=== PATIENT | male | born 1970 | race Caucasian/White ===

== ENCOUNTER 2020-02-02 09:09 | Outpatient (CLI) | payer OTHER ==
--- NOTE | 2020-02-02 09:43 | ULT ---
EXAM: US Gallbladder RUQ CLINICAL HISTORY: Acid reflux. Right upper quadrant pain.. COMPARISON: None. FINDINGS: Pancreas: The head of the pancreas has a normal echotexture. Remainder the pancreas is obscured by b owel gas Liver:Hepatic parenchyma has a normal echotexture. No hepatic masses or intrahepatic biliary dilatati on. Right hepatic lobe: 15.2 cm Gallbladder: No sonographic evidence of cholelithiasis, gallbladder wall thickening or pericholecysti c fluid. Echogenic focus with ringdown artifact in the gallbladder fundus compatible with adenomyomatosis. Norris's sign:Negative Portal Vein: Patent. Appropriate directional flow Bile ducts: 0.6 cm common bile duct diameter Right kidney: No hydronephrosis. Right kidney measures 11.0 x 6.6 x 7.1 cm in length. IMPRESSION: Unremarkable exam.
== END 2020-02-02 09:10 | disposition home or self-care (01) ==
LOC: BICULT 09:09
PROVIDERS: ATTEND Nurse Practitioner Family
DX: R10.11 Right upper quadrant pain (principal)
CPT/HCPCS: 76705

== ENCOUNTER 2020-03-04 05:55 | Outpatient (CLI) | payer OTHER ==
[2020-03-04 14:31] LABS: #Eosinphils 0.5 thou/uL (0.0-0.7); #Lymphocytes 2.6 thou/uL (1.20-3.40); #Monocytes 0.7 thou/uL (0.11-0.59); #Neutrophils 3.3 thou/uL (1.40-6.50); %Basophils 0.7 % (0.0-1.0); %Eosinophils 7.4 % (0.0-10.0); %Lymphocytes 35.8 % (21.0-51.0); %Monocytes 10.1 % (0.0-10.0); Mean Corpuscular HGB CONC 33.2 g/dL (32.0-36.0); Mean Corpuscular Hemoglobin 30.1 pg (27.0-31.0); Mean Corpuscular Volume 90.6 fL (78.0-98.0); Mean Platelet Volume 8.2 fL (7.4-10.4); Platelet Count 266 thou/uL (130-400); RBC Distribution Width 11.8 % (11.5-14.5); Red Blood Cell (RBC) Count 4.98 mill/uL (4.70-6.10); White Blood Cell (WBC) Count 7.2 thou/uL (4.8-10.8)
[2020-03-04 14:41] LABS: Anion Gap 13 mmol/L (10-20); BUN (Urea Nitrogen) 10 mg/dL (8.9-20.6); Calc. Creatinine Clearance 0 mL/min (70-130); Calcium 9.8 mg/dL (7.8-10.44); Carbon Dioxide 24 mmol/L (22-29); Chloride 103 mmol/L (98-107); Estimated GFR-MDRD 70; Glucose 99 mg/dL (70-105); Potassium 4.1 mmol/L (3.5-5.1); Sodium 136 mmol/L (136-145)
[2020-03-05 13:46] LABS: SARS-CoV-2 MS2 Positive; SARS-CoV-2 N Gene Negative; SARS-CoV-2 S Gene Negative; SARS-CoV-2 orf1ab Negative
== END 2020-03-04 05:56 | disposition home or self-care (01) ==
LOC: LABBT 05:55
PROVIDERS: ATTEND Surgery
DX: Z01.812 Encounter for preprocedural laboratory examination (principal); Z11.59 Encounter for screening for other viral diseases; K82.8 Other specified diseases of gallbladder
CPT/HCPCS: 80048; 85025; 87635; U0003

== ENCOUNTER 2020-03-07 07:19 | Inpatient (IN) | payer OTHER ==
[2020-03-07] MEDS ORDERED: Lidocaine 1% w/Epinephrine 1:100K 20 ML VIAL ONE (09:08)
[2020-03-07] MEDS ORDERED: Bupivacaine 0.25% HCL 30 ML VIAL ONE (09:08)
[2020-03-07] MEDS ORDERED: Fentanyl 100 MCG/2 ML VIAL ONE ×3 (09:09→11:59)
[2020-03-07] MEDS ORDERED: Iopamidol 15 ML ONE (09:33)
[2020-03-07 09:51] LABS: ALT (SGPT) 512 U/L (8-55); AST (SGOT) 206 U/L (5-34); Albumin 4.4 g/dL (3.5-5.0); Alkaline Phosphatase 374 U/L (40-110); Bilirubin, Direct 3.9 mg/dL (0.1-0.3); Bilirubin, Total 5.2 mg/dL (0.2-1.2); Protein, Total 7.3 g/dL (6.0-8.3)
[2020-03-07] MEDS ORDERED: Dexamethasone 20 MG/5 ML VIAL ONE (11:07)
[2020-03-07] MEDS ORDERED: EPHEDRINE 25 MG/5 ML SYRINGE ONE (11:07)
[2020-03-07] MEDS ORDERED: Rocuronium Bromide 10 MG/ML (10ML VIAL) ONE (11:07)
[2020-03-07] MEDS ORDERED: Lidocaine 1% PF 5 ML VIAL ONE (11:07)
[2020-03-07] MEDS ORDERED: Glycopyrrolate 0.2 MG/ML 5 ML SYRINGE ONE (11:07)
[2020-03-07] MEDS ORDERED: Ondansetron PF 4 MG/2 ML Vial ONE (11:07)
[2020-03-07] MEDS ORDERED: PROPOFOL 200 MG/20 ML VIAL ONE (11:07)
[2020-03-07] MEDS ORDERED: SUGAMMADEX SODIUM 200 MG/2 ML VIAL ONE (11:10)
[2020-03-07] MEDS ORDERED: Promethazine HCl 25 MG/ML VIAL IM PRN ×2 (11:17→12:25)
[2020-03-07] MEDS ORDERED: PACU-Morphine 4MG/ML VIAL SLOW IVP PRN (11:17)
[2020-03-07] MEDS ORDERED: Promethazine HCl 25 MG/ML VIAL SLOW IVP PRN (11:17)
[2020-03-07] MEDS ORDERED: Ondansetron HCl/PF 4 MG/2 ML Vial IVP PRN (11:17)
[2020-03-07] MEDS ORDERED: HYDROmorphone 2 MG/ML VIAL SLOW IVP PRN (11:17)
[2020-03-07] MEDS ORDERED: Morphine Sulfate 2 MG/ML SYRINGE SLOW IVP PRN (11:17)
[2020-03-07] MEDS ORDERED: Meperidine HCl/PF 25 MG/ML VIAL SLOW IVP PRN (11:17)
--- NOTE | 2020-03-07 11:42 | RAD ---
Intraoperative cholangiogram one view: 03/07/2020 HISTORY: 49-year-old male with right upper quadrant abdominal pain FINDINGS: Single image demonstrates contrast injected through cystic duct stump demonstrates diffusely dilated common bile duct and common hepatic duct, and dilated proximal portions of hepatic ducts. There is lack of contrast inferior to the lower common bile duct where there is irregularity. No definite inte rnal filling defect identified. No contrast visualized in the duodenum. IMPRESSION: Extrahepatic biliary ductal ectasia suspicious for obstruction at lower portion of common bile duct.
[2020-03-07] MEDS ORDERED: Mag-Al 1200 mg/1200 mg/30 ML UDCUP PO PRN (12:25)
[2020-03-07] MEDS ORDERED: Ondansetron PF 4 MG/2 ML Vial IVP PRN (12:25)
[2020-03-07] MEDS ORDERED: Dextrose 50% Abboject 50 ML SYRINGE SLOW IVP PRN (12:25)
[2020-03-07] MEDS ORDERED: Calcium Carbonate 500 MG ChewTAB PO PRN (12:25)
[2020-03-07] MEDS ORDERED: Morphine 4 MG/ML VIAL SLOW IVP PRN (12:25)
[2020-03-07] MEDS ORDERED: Dextrose 5% in Water 1,000 ML IV PRN (12:25)
[2020-03-07] MEDS ORDERED: hydrALAZINE 20 MG/ML VIAL SLOW IVP PRN (12:25)
[2020-03-07] MEDS: Morphine 2 MG/ML SYRINGE SLOW IVP PRN ×2 (14:09→17:24)
[2020-03-07] MEDS ORDERED: Iopamidol-370 76% 500 ML 1 ML ONE (14:29)
--- NOTE | 2020-03-07 15:24 | CT ---
CT abdomen with and without contrast CT pelvis with and without contrast: DATE: 03/07/2020 HISTORY: 49-year-old male with abnormal intraoperative cholangiogram despite negative gallbladder ultrasound Dr. Campos discussed the findings with Dr. Chandan Pham at 3:19 PM 03/07/2020 COMPARISON: None TECHNIQUE: Oral contrast administered Precontrast scan through entire abdomen and pelvis. 100 mL Isovue-370 injected IV. Arterial phase scan abdomen. Venous phase scan abdomen and pelvis. Coronal and sagittal reconstructions of venous phase scan. FINDINGS: There is hyperdense contrast material throughout the dilated common bile duct, common hepatic duct, l eft and right hepatic ducts, and all of the intrahepatic biliary radicles, including peripheral branches. There is an abrupt truncation of the contrast material at the level of ampulla of Vater. Th ere is less hyperdense oral contrast material in the lumen of the second and third stages of duodenum, stomach, and jejunal nondilated loops of bowel. This is consistent with high-grade obstruct ion at the ampulla. Streaky platelike densities at bases of bilateral lower lobes are consistent with subsegmental atelec tasis. Tiny amount of free fluid around the right lobe of the liver. No solid or cystic hepatic mass lesion. No portal vein thrombosis. Reflux of oral contrast material into esophagus from the stomach. No renal, ureteral, or bladder calculus. No hydronephrosis. Normal kidneys, abdominal aorta, adrenals, pancreas, spleen, appendix, and urinary bladder. No pancreatic ductal dilation. Small amount of free fluid within the pelvic cavity Sigmoid colonic diverticulosis without diverticulitis. No small bowel dilation, pneumoperitoneum, or pleural effusion. Nonspecific multiple mildly enlarged lymph nodes in the region of the dipika hepatis, retroperitoneum, and celiac axis. No destructive osseous lesion identified. IMPRESSION: 1.) High-grade biliary obstruction at the ampulla of Vater. Although no obvious tumor mass is identif ied at the pancreatic head, this is consistent with a tiny obstruction lesion at the ampulla Vater. 2) minimal ascites. 3) gastroesophageal reflux. 4) nonspecific minimally enlarged upper abdominal lymph nodes.
[2020-03-07] MEDS: D5 1/2 NS w/20 mEq KCL 1,000 ML IV SCH ×3 (15:29→23:26)
[2020-03-07] MEDS: HYDROcodone/Acetaminophen 7.5/325 mg Tablet PO PRN ×2 (15:32→21:02)
[2020-03-07 18:07] VITALS: BMI 29.5
--- NOTE | 2020-03-07 18:27 | OP ---
DATE OF PROCEDURE: 03/07/2020 PREOPERATIVE DIAGNOSIS: Symptomatic cholelithiasis, elevated liver function tests. POSTOPERATIVE DIAGNOSIS: Symptomatic cholelithiasis, elevated liver function tests. PROCEDURE PERFORMED: Laparoscopic cholecystectomy with intraoperative cholangiogram. ANESTHESIA: General. COMPLICATIONS: None. SPECIMEN: Gallbladder. FINDINGS: Cholangiogram shows distal common bile duct obstruction. DESCRIPTION OF PROCEDURE: Patient was taken to the operative room, placed spine on the operating table. After general anesthetic was obtained, the abdomen was prepped and draped in a sterile fashion. A curved incision was made below the umbilicus. Cautery was used to dissect down to and score the fascia. Abdominal catheter was entered bluntly using a Kellie clamp. Holding stitch of PDS was placed on each side of fascia. Tatiana trocar was placed. High-flow pneumoperitoneum was obtained. An upper midline 5 mm port as well as two right upper quadrant 5 mm ports were placed under direct visualization. The gallbladder was retracted from the gallbladder fossa. peritoneum was opened anteriorly and posteriorly. The critical view triangle was seen showing only the cystic duct and cystic artery branching medial to lateral and no other branching structures. A clip was placed high on the cystic duct and a small ductotomy was made just proximal to that. A cholangiocatheter was brought in through a separate stab incision and placed in the cystic duct and a cholangiogram was performed, which showed good contrast flow into the duodenum. There was distal common bile duct obstruction. There was dilation of the common hepatic duct, right and left hepatic as well as the cystic duct. The cholangiocatheter was removed and 2 clips were placed proximally on the cystic duct, cut using laparoscopic scissors. Cystic artery was taken using 2 clips proximally, 1 clip distally, cut using laparoscopic scissors. Cautery was used to dissect the gallbladder out of the gallbladder fossa. Gallbladder was placed in EndoCatch bag and brought out through the Taveras. No bleeding in the liver bed. The right upper quadrant was irrigated until returns were clear. All ports were removed under camera visualization and pneumoperitoneum was let down. PDS used to close the fascia defect below the umbilicus. All incisions irrigated and closed using 4-0 Monocryl and Dermabond. Patient was sent to Recovery in stable condition. All instrument counts, needle counts, and lap counts were correct. Job ID: [id number]
--- NOTE | 2020-03-07 19:26 | CON ---
DATE OF CONSULTATION: 03/07/2020 CHIEF COMPLAINT: Abdominal pain. HISTORY OF PRESENT ILLNESS: Mr. Jeffery presented earlier this month to the office with Dr. Loco for evaluation of intermittent right upper quadrant pain over the preceding month. It would randomly come and go and last for hours at a time, but was severe when it did occur. He has had some episodes several months ago that then resolved and then came back over the last couple of months. He has had no nausea or vomiting, diarrhea, constipation, or blood in the stool. Dr. Loco performed EGD and colonoscopy to further evaluate the symptoms, which were found to be normal. Ultrasound of the gallbladder showed adenomyomatosis. Given the intermittent right upper quadrant pain with the gallbladder findings, the patient underwent laparoscopic cholecystectomy today by Dr. Barboza. He had blood work this morning prior to surgery, which revealed a bilirubin of 5.2 with an alkaline phosphatase of 374. His AST was 206 and ALT 512. His creatinine was normal. His CBC was unremarkable. Platelets were normal. The patient underwent intraoperative cholangiogram today, which showed a dilation of the common bile duct with ectasia. Contrast did not flow from the bile duct down into the intestine. PAST MEDICAL HISTORY: Degenerative joint disease, for which he has used NSAIDs rarely. PAST SURGICAL HISTORY: Finger surgery. FAMILY HISTORY: Negative for GI malignancy. SOCIAL HISTORY: No alcohol, tobacco, or drugs. ALLERGIES: BACTRIM. OUTPATIENT MEDICATIONS: Omeprazole. REVIEW OF SYSTEMS: Negative x10 systems reviewed except as stated in history of present illness. PHYSICAL EXAMINATION: GENERAL: In no acute distress. Alert and oriented x3. His eyes have scleral icterus. He is jaundiced. His oropharynx is clear without lesions. No cervical or supraclavicular lymphadenopathy. LUNGS: Clear to auscultation bilaterally. HEART: Regular rate and rhythm without murmur. ABDOMEN: Soft, nontender, and nondistended. Bowel sounds are present. EXTREMITIES: No lower extremity edema. LABORATORY DATA: White blood cell count 7.2, hemoglobin 15.0, and platelets 266, creatinine 1.12, bilirubin 5.2, AST 206, ALT 512, alkaline phosphatase 374, direct bilirubin 3.9, and albumin 4.4. IMPRESSION: Obstructive jaundice. He presents with obstructive liver tests and intraoperative cholangiogram shows dilation of the bile duct without flow to the duodenum. His gallbladder was opened after surgery that showed no obvious stones. He could have a single stone in the past causing choledocholithiasis, but is also concerning for another obstructive process such as pancreatic or bile duct neoplasm. RECOMMENDATIONS: 1. CT scan of the abdomen and pelvis with pancreas protocol today. 2. ERCP tomorrow morning. Job ID: [id number]
[2020-03-07] MEDS: Famotidine/PF 20 mg/2ml Vial SLOW IVP SCH (20:54)
[2020-03-08 05:56] LABS: #Eosinphils 0.1 thou/uL (0.0-0.7); %Basophils 0.4 % (0.0-1.0); %Eosinophils 0.6 % (0.0-10.0); %Lymphocytes 18.2 % (21.0-51.0); %Monocytes 8.9 % (0.0-10.0); %Neutrophils 71.9 % (42.0-75.0); Hemoglobin 14.5 g/dL (14.0-18.0); Mean Corpuscular HGB CONC 33.1 g/dL (32.0-36.0); Mean Corpuscular Hemoglobin 30.9 pg (27.0-31.0); Mean Corpuscular Volume 93.2 fL (78.0-98.0); Mean Platelet Volume 8.5 fL (7.4-10.4); Platelet Count 259 thou/uL (130-400); RBC Distribution Width 12.3 % (11.5-14.5); Red Blood Cell (RBC) Count 4.69 mill/uL (4.70-6.10); White Blood Cell (WBC) Count 11.2 thou/uL (4.8-10.8)
[2020-03-08 06:18] LABS: ALT (SGPT) 607 U/L (8-55); AST (SGOT) 273 U/L (5-34); Alkaline Phosphatase 367 U/L (40-110); Anion Gap 16 mmol/L (10-20); BUN (Urea Nitrogen) 7 mg/dL (8.9-20.6); Bilirubin, Total 4.2 mg/dL (0.2-1.2); Calc. Creatinine Clearance 120 mL/min (70-130); Calcium 9.2 mg/dL (7.8-10.44); Carbon Dioxide 19 mmol/L (22-29); Chloride 107 mmol/L (98-107); Estimated GFR-MDRD 79; Glucose 110 mg/dL (70-105); Lipase 25 U/L (8-78); Potassium 4.4 mmol/L (3.5-5.1); Sodium 138 mmol/L (136-145)
[2020-03-08] MEDS ORDERED: Iopamidol 50 ML FS ONE (07:07)
[2020-03-08] MEDS: D5 1/2 NS w/20 mEq KCL 1,000 ML IV SCH (07:29)
[2020-03-08] MEDS ORDERED: Indomethacin 50 MG SUPP ONE (08:23)
[2020-03-08] MEDS ORDERED: Fentanyl 100 MCG/2 ML VIAL ONE (09:40)
[2020-03-08] MEDS ORDERED: Levofloxacin 500 mg/D5W 100 ml Premix Bag ONE (09:43)
[2020-03-08] MEDS ORDERED: Ondansetron PF 4 MG/2 ML Vial ONE (10:57)
[2020-03-08] MEDS ORDERED: Rocuronium Bromide 10 MG/ML (10ML VIAL) ONE (11:02)
[2020-03-08] MEDS ORDERED: PROPOFOL 200 MG/20 ML VIAL ONE (11:02)
[2020-03-08] MEDS ORDERED: Glycopyrrolate 0.2 MG/ML 5 ML SYRINGE ONE (11:02)
[2020-03-08] MEDS ORDERED: Lidocaine 1% PF 5 ML VIAL ONE (11:02)
--- NOTE | 2020-03-08 11:06 | RAD ---
Exam: Fluoroscopy for ERCP HISTORY: Evaluate biliary system. Dilated common bile duct, keeping acutely. Evaluate for possible le efren at the ampulla. Correlation: Abdomen and pelvic CT 03/07/2020 FINDINGS: Retrograde opacification noted dilatation of the common bile duct. No evidence of a gallbladder. Ther e is a subtle lucency noted at the level of the distal common bile duct suggesting a small choledocholithiasis. IMPRESSION: Fluoroscopy for ERCP as above. Choledocholithiasis is noted at the level of the ampulla.
[2020-03-08] MEDS: Famotidine/PF 20 mg/2ml Vial SLOW IVP SCH (14:05)
[2020-03-08 15:43] VITALS: BP 144/87; TEMP 97.7
--- NOTE | 2020-03-08 17:29 | OP ---
DATE OF PROCEDURE: 03/08/2020 PROCEDURE PERFORMED: Endoscopic retrograde cholangiopancreatography with sphincterotomy and balloon stone extraction. PREOPERATIVE DIAGNOSES: Obstructive jaundice, biliary obstruction, and elevated LFTs. DESCRIPTION OF PROCEDURE: Informed consent was obtained from the patient. He was sedated with general anesthesia and placed in the prone position. The duodenoscope was advanced easily to the second portion of the duodenum and the ampulla was identified and appeared prominent, but unremarkable. There was no periampullary neoplastic process identified. The common bile duct was selectively cannulated easily on first attempt with the wire alone. The catheter was placed into the bile duct and cholangiogram was performed, which revealed small distal filling defect. A complete sphincterotomy was performed. A 15 mm balloon was used to sweep the bile duct. The 15 mm balloon passes through the sphincterotomy with minimal resistance. A 5 mm yellow pigment stone was extracted from the distal common bile duct. This was a rectangular shaped stone. The occlusion cholangiogram after that confirmed the duct to be clear. A good drainage of bile and contrast. Air and fluid were suctioned from the stomach. The patient did have retained vegetable material in the body of the stomach. IMPRESSION: 1. Cholangiogram showing normal ampulla and clear yellow bile. The common bile duct was dilated to 15 mm by cholangiogram with normal hepatic ducts. There was a small distal filling defect. 2. Complete sphincterotomy performed. 3. A 5 mm yellow pigment stone was extracted with a 15 mm balloon. A 15 mm balloon passed through the sphincterotomy with minimal resistance. 4. Occlusion cholangiogram confirmed the duct to be clear. 5. There was retained vegetable matter in the body of the stomach. RECOMMENDATIONS: 1. If he has no problems post ERCP, he can advance his diet and discharge home this evening versus tomorrow morning. 2. Follow up with Dr. Loco in the office. Job ID: [id number]
== END 2020-03-08 16:06 | disposition home or self-care (01) | DRG 419 ==
LOC: SDC 07:19 → SURG A 12:07
PROVIDERS: ADMIT Surgery; ATTEND Surgery
PROC: 0FT44ZZ Resection of Gallbladder, Percutaneous Endoscopic Approach (ICD-10-PCS; principal; 2020-03-07)
PROC: BF131ZZ Fluoroscopy of Gallbladder and Bile Ducts using Low Osmolar Contrast (ICD-10-PCS; 2020-03-07)
PROC: 0FC98ZZ Extirpation of Matter from Common Bile Duct, Via Natural or Artificial Opening Endoscopic (ICD-10-PCS; 2020-03-07)
DX: K80.51 Calculus of bile duct without cholangitis or cholecystitis with obstruction (principal); J44.9 Chronic obstructive pulmonary disease, unspecified; I25.10 Atherosclerotic heart disease of native coronary artery without angina pectoris; R13.10 Dysphagia, unspecified; Z01.812 Encounter for preprocedural laboratory examination; Z11.59 Encounter for screening for other viral diseases; K82.8 Other specified diseases of gallbladder
CPT/HCPCS: 36415; 47532; 74178; 74330; 80048; 80053; 80076; 83690; 85025; 87635; 88304; J0690; J1100; J1956; J2001; J2270; J2405; J2704; J3010; J3480; Q9967; S0020; S0028; U0003